=== PATIENT | female | born 1985 | race Caucasian/White ===

== ENCOUNTER 2023-03-07 19:23 | Emergency (ER) | payer BC ==
[2023-03-07 20:09] VITALS: TEMP 98.3
[2023-03-07 20:35] LABS: Basophils # (A) 0.1 k/uL (0-0.2); Basophils % (A) 1 %; Eosinophils # (A) 0.2 k/uL (0-0.7); Eosinophils % (A) 2 %; HCT 36.8 % (34.0-46.0); HGB 12.5 gm/dL (11.4-16.0); Lymphocytes # (A) 2.5 k/uL (1.0-4.8); Lymphocytes % (A) 23 %; MCH 31.2 pg (25.0-35.0); MCHC 33.9 g/dL (31.0-37.0); Mean Platelet Volume 7.5; Monocytes # (A) 0.5 k/uL (0-1.0); Monocytes % (A) 4 %; Neutrophils # (A) 7.3 k/uL (1.3-7.7); Neutrophils % (A) 68 %; Platelet Count 280 k/uL (150-450); WBC 10.7 k/uL (3.8-10.6)
[2023-03-07 20:47] LABS: ALT 19 U/L (4-34); AST 21 U/L (14-36); African American GFR (CKD) >90 (>60 ml/min/1.73 sqM); Albumin 3.8 g/dL (3.5-5.0); Alkaline Phosphatase 56 U/L (38-126); Anion Gap 9 mmol/L; Blood Urea Nitrogen 12 mg/dL (7-17); Calcium 9.4 mg/dL (8.4-10.2); Carbon Dioxide 21 mmol/L (22-30); Chloride 106 mmol/L (98-107); Glucose 97 mg/dL (74-99); Non-African American GFR(CKD) >90 (>60 ml/min/1.73 sqM); Potassium 4.2 mmol/L (3.5-5.1); Sodium 136 mmol/L (137-145); Total Bilirubin 0.4 mg/dL (0.2-1.3); Total Protein 7.3 g/dL (6.3-8.2)
[2023-03-07 20:48] LABS: Amorphous Sediment,Urine Occasional /hpf; Appearance,Urine Cloudy (Clear); Bacteria,Urine Many /hpf; Bilirubin,Urine Negative (Negative); Blood,Urine Negative (Negative); Calcium Oxalate Crystals,Urine Moderate /hpf; Color,Urine Yellow; Glucose,Urine (UA) Negative (Negative); Hyaline Casts,Urine 4 /lpf (0-2); Ketones,Urine Trace (Negative); Leukocyte Esterase,Urine Small (Negative); Mucus,Urine Moderate /hpf; Nitrite,Urine Negative (Negative); PH, Urine 5.5 (5.0-8.0); Protein,Urine 1+ (Negative); RBC,Urine 1 /hpf (0-5); Specific Gravity,Urine 1.037 (1.001-1.035); Squamous Epithelial Cell,Urine 9 /hpf (0-4); WBC,Urine 14 /hpf (0-5)
[2023-03-07] MEDS ORDERED: SODIUM CHLORIDE 0.9% 1,000 ML IV ONE (21:20)
--- NOTE | 2023-03-07 21:48 | ED ---
General Adult HPI - General Chief complaint: Vaginal Bleeding Stated complaint: 14 Wks preg. Pain, Discharge Time Seen by Provider: 03/07/23 20:02 Source: patient, RN notes reviewed Mode of arrival: ambulatory - History of Present Illness Initial comments: 37-year-old female with no significant past medical history presents the emergency department with a chief complaint of vaginal bleeding. Patient reports that she had a light pink tinge of vaginal bleeding after wiping on 02/2023. She reports that yesterday her discharge was canceled and light brown. She did call her CLIENT ARCHITECT twice report her symptoms which they advised her to watch her symptoms closely. Tonight she presents to the emergency department because she felt sudden onset right lower quadrant abdominal pain, sharp and lasted a few moments. It has since resolved. She is also complaining of persistent nausea throughout her . She reports she is approximately 14 weeks . This is her first . Denies any active pain, vaginal bleeding or discharge. Denies concerned for STDs at this time. - Related Data Previous Rx's Medication Instructions Recorded Njk-Acek-Dhwrg Acid 1 each PO DAILY #30 cap 03/07/23 [-U Capsule] Cephalexin [Keflex] 500 mg PO BID #14 cap 03/08/23 Allergies Allergy/AdvReac Type Severity Reaction Status Date / Time adhesive Allergy Rash/Hives Verified 03/07/23 20:00 latex Allergy Rash/Hives Verified 03/07/23 20:00 sumatriptan [From Imitrex] Allergy Rapid Verified 03/07/23 20:00 Heart Rate Review of Systems ROS Statement: Those systems with pertinent positive or pertinent negative responses have been documented in the HPI. ROS Other: All systems not noted in ROS Statement are negative. Past Medical History Additional Past Medical History / Comment(s): diverticulitis, mirgaines History of Any Multi-Drug Resistant Organisms: None Reported Past Surgical History: No Surgical Hx Reported Past Psychological History: No Psychological Hx Reported Smoking Status: Never smoker Past Alcohol Use History: None Reported Past Drug Use History: None Reported General Exam - General Exam Comments Initial Comments: General: Alert, in no acute distress Head: atraumatic normocephalic. Eyes PERRL, EOMI intact, mucous membranes moist Respiratory: Lungs clear to auscultation bilaterally Cardiovascular: Rate regular rate and rhythm Abdominal: Soft without guarding or rebound Extremities: Normal inspection with full range of motion and normal capillary refill Neuroogic: alert and oriented 3, CN II-XII intact, able to ambulate with steady gait Skin: warm dry and intact with normal color : external exam is without any rashes, lesions, erythema. Vaginal canal with thin, clear discharge, no active vaginal bleeding. Cervical os is visualized and is closed. There is no cervical motion tenderness for abnormal adnexal tenderness. Pelvic exam performed with safety glass installer, YOON Pedraza present. Course Vital Signs 03/07/23 03/07/23 19:55 23:16 Temperature 98.3 F Pulse Rate 99 88 Respiratory 17 18 Rate Blood Pressure 101/60 126/81 O2 Sat by Pulse 97 97 Oximetry - Reevaluation(s) Reevaluation #1: 03/07/23 22:12 Reevaluated. Resting comfortably. Patient aware awaiting ultrasound results. Reevaluation #2: 03/07/23 23:06 exam performed with ANA PAULA Pedraza present in the room for safety glass installer. Patient agreeable with plan for discharge home. Medical Decision Making - Medical Decision Making Was pt. sent in by a medical professional or institution (JESICA Alejandro, CLIENT DELIVERY SPECIALIST, urgent care, hospital, or jail...) When possible be specific @ -[No] Did you speak to anyone other than the patient for history (EMS, parent, family, police, friend...)? What history was obtained from this source @ -Mother Did you review nursing and triage notes (agree or disagree)? Why? @ -[I reviewed and agree with nursing and triage notes] Were old charts reviewed (outside hosp., previous admission, EMS record, old EKG, old radiological studies, urgent care reports/EKG's, jail records)? Report findings @ -[No old charts were reviewed] Differential Diagnosis (chest pain, altered mental status, abdominal pain women, abdominal pain men, vaginal bleeding, weakness, fever, dyspnea, syncope, h eadache, dizziness, GI bleed, back pain, seizure, CVA, palpatations, mental health, musculoskeletal)? @ -[not applicable] EKG interpreted by me (3pts min.). @ -[As above] X-rays interpreted by me (1pt min.). @ -[None done] CT interpreted by me (1pt min.). @ -[None done] U/S interpreted by me (1pt. min.). @ -Ultrasound reveals single live intrauterine that measures approximately 15 weeks and one day. Anterior placenta however no evidence of previa. What testing was considered but not performed or refused? (CT, X-rays, U/S, labs)? Why? @ -[None] What meds were considered but not given or refused? Why? @ -[None] Did you discuss the management of the patient with other professionals (professionals i.e. , PA, CLIENT DELIVERY SPECIALIST, lab, RT, psych nurse, social staff worker, registered safety engineer, teacher, chief program officer, case resolution specialist)? Give summary @ -[No] Was smoking cessation discussed for >3mins.? @ -[No] Was critical care preformed (if so, how long)? @ -[No] Were there social determinants of health that impacted care today? How? ( Homelessness, low income, unemployed, alcoholism, drug addiction, transportation, low edu. Level, literacy, decrease access to med. care, detention, rehab)? @ -[No] Was there de-escalation of care discussed even if they declined (Discuss DNR or withdrawal of care, Hospice)? DNR status @ -[No] What co-morbidities impacted this encounter? (DM, HTN, Smoking, COPD, CAD, Cancer, CVA, ARF, Chemo, Hep., AIDS, mental health diagnosis, sleep apnea, morbid obesity)? @ -[None] Was patient admitted / discharged? Hospital course, mention meds given and route, prescriptions, significant lab abnormalities, going to OR and other pertinent info. @ -Discharged. This is a 37-year-old female presents to the emergency department with a chief complaint of vaginal bleeding in . Patient has a history and physical exam performed. Vital signs are stable. Heart rate regular rate and rhythm, only lungs clear to auscultation bilaterally abdomen is soft and nontender. Patient laboratory studies which revealed hCG is 65,000. Ultrasound results above. Pelvic exam does not reveal any evidence of vaginal bleeding and states her office is closed. I discussed results in detail with the patient verbalized understanding all questions addressed. She is agreeable with plan for discharge home. Recommend close follow-up with PCP and CLIENT ARCHITECT in 1-2 days. Strict return parameters were discussed. Urine culture is pending. Discharged in stable condition. Discussed with Dr. Cordero, ED attending who agrees with plan of care Undiagnosed new problem with uncertain prognosis? @ -[No] Drug Therapy requiring intensive monitoring for toxicity (Heparin, Nitro, Insulin, Cardizem)? @ -[No] Were any procedures done? @ -[No] Diagnosis/symptom? @ Vaginal Bleeding Acute, or Chronic, or Acute on Chronic? @ -Acute Uncomplicated (without systemic symptoms) or Complicated (systemic symptoms)? @ -Uncomplicated Side effects of treatment? @ -[No] Exacerbation, Progression, or Severe Exacerbation? @ -[No] Poses a threat to life or bodily function? How? (Chest pain, USA, SC, pneumonia, PE, COPD, DKA, ARF, appy, cholecystitis, CVA, Diverticulitis, Homicidal, Suicidal, threat to staff... and all critical care pts) @ -Low likelihood - Lab Data Result diagrams: 03/07/23 20:10 03/07/23 20:10 Lab Results 03/07/23 03/07/23 03/07/23 Range/Units 20:10 20:10 20:10 WBC 10.7 H (3.8-10.6) k/uL RBC 4.00 (3.80-5.40) m/uL Hgb 12.5 (11.4-16.0) gm/dL Hct 36.8 (34.0-46.0) % MCV 92.0 (80.0-100.0) fL MCH 31.2 (25.0-35.0) pg MCHC 33.9 (31.0-37.0) g/dL RDW 13.0 (11.5-15.5) % Plt Count 280 (150-450) k/uL MPV 7.5 Neutrophils % 68 % Lymphocytes % 23 % Monocytes % 4 % Eosinophils % 2 % Basophils % 1 % Neutrophils # 7.3 (1.3-7.7) k/uL Lymphocytes # 2.5 (1.0-4.8) k/uL Monocytes # 0.5 (0-1.0) k/uL Eosinophils # 0.2 (0-0.7) k/uL Basophils # 0.1 (0-0.2) k/uL Sodium 136 L (137-145) mmol/L Potassium 4.2 (3.5-5.1) mmol/L Chloride 106 (98-107) mmol/L Carbon Dioxide 21 L (22-30) mmol/L Anion Gap 9 mmol/L BUN 12 (7-17) mg/dL Creatinine 0.64 (0.52-1.04) mg/dL Est GFR (CKD-EPI)AfAm >90 (>60 ml/min/1.73 sqM) Est GFR (CKD-EPI)NonAf >90 (>60 ml/min/1.73 sqM) Glucose 97 (74-99) mg/dL Calcium 9.4 (8.4-10.2) mg/dL Total Bilirubin 0.4 (0.2-1.3) mg/dL AST 21 (14-36) U/L ALT 19 (4-34) U/L Alkaline Phosphatase 56 (38-126) U/L Total Protein 7.3 (6.3-8.2) g/dL Albumin 3.8 (3.5-5.0) g/dL HCG, Quant 61870.7 mIU/mL Urine Color Yellow Urine Appearance Cloudy H (Clear) Urine pH 5.5 (5.0-8.0) Ur Specific [place] 1.037 H (1.001-1.035) Urine Protein 1+ H (Negative) Urine Glucose (UA) Negative (Negative) Urine Ketones Trace H (Negative) Urine Blood Negative (Negative) Urine Nitrite Negative (Negative) Urine Bilirubin Negative (Negative) Urine Urobilinogen 2.0 (<2.0) mg/dL Ur Leukocyte Esterase Small H (Negative) Urine RBC 1 (0-5) /hpf Urine WBC 14 H (0-5) /hpf Ur Squamous Epith Cells 9 H (0-4) /hpf Calcium Oxalate Crystal Moderate H (None) /hpf Amorphous Sediment Occasional H (None) /hpf Urine Bacteria Many H (None) /hpf Hyaline Casts 4 H (0-2) /lpf Urine Mucus Moderate H (None) /hpf Blood Type Blood Type Confirm Blood Type Recheck Bld Type Recheck Status Antibody Screen Spec Expiration Date 03/07/23 03/07/23 Range/Units 20:20 22:15 WBC (3.8-10.6) k/uL RBC (3.80-5.40) m/uL Hgb (11.4-16.0) gm/dL Hct (34.0-46.0) % MCV (80.0-100.0) fL MCH (25.0-35.0) pg MCHC (31.0-37.0) g/dL RDW (11.5-15.5) % Plt Count (150-450) k/uL MPV Neutrophils % % Lymphocytes % % Monocytes % % Eosinophils % % Basophils % % Neutrophils # (1.3-7.7) k/uL Lymphocytes # (1.0-4.8) k/uL Monocytes # (0-1.0) k/uL Eosinophils # (0-0.7) k/uL Basophils # (0-0.2) k/uL Sodium (137-145) mmol/L Potassium (3.5-5.1) mmol/L Chloride (98-107) mmol/L Carbon Dioxide (22-30) mmol/L Anion Gap mmol/L BUN (7-17) mg/dL Creatinine (0.52-1.04) mg/dL Est GFR (CKD-EPI)AfAm (>60 ml/min/1.73 sqM) Est GFR (CKD-EPI)NonAf (>60 ml/min/1.73 sqM) Glucose (74-99) mg/dL Calcium (8.4-10.2) mg/dL Total Bilirubin (0.2-1.3) mg/dL AST (14-36) U/L ALT (4-34) U/L Alkaline Phosphatase (38-126) U/L Total Protein (6.3-8.2) g/dL Albumin (3.5-5.0) g/dL HCG, Quant mIU/mL Urine Color Urine Appearance (Clear) Urine pH (5.0-8.0) Ur Specific [place] (1.001-1.035) Urine Protein (Negative) Urine Glucose (UA) (Negative) Urine Ketones (Negative) Urine Blood (Negative) Urine Nitrite (Negative) Urine Bilirubin (Negative) Urine Urobilinogen (<2.0) mg/dL Ur Leukocyte Esterase (Negative) Urine RBC (0-5) /hpf Urine WBC (0-5) /hpf Ur Squamous Epith Cells (0-4) /hpf Calcium Oxalate Crystal (None) /hpf Amorphous Sediment (None) /hpf Urine Bacteria (None) /hpf Hyaline Casts (0-2) /lpf Urine Mucus (None) /hpf Blood Type A Positive Blood Type Confirm A Positive Blood Type Recheck No Previous Record Bld Type Recheck Status CABO Indicated Antibody Screen NEGATIVE Spec Expiration Date 03/10/20232319 Disposition Clinical Impression: Vaginal bleeding Disposition: HOME SELF-CARE Condition: Fair Additional Instructions: Follow-up with her primary CLIENT ARCHITECT in 1-2 days Please to the nearest emergency department if worsening vaginal bleeding, heavy clots or dizziness or lightheadedness Prescriptions: Cephalexin [Keflex] 500 mg PO BID #14 cap Bhl-Hmyr-Pufzd Acid [-U Capsule] 1 each PO DAILY #30 cap Is patient prescribed a controlled substance at d/c from ED?: No Referrals: Jorge Galvan MD [Primary Care Provider] - 1-2 days Time of Disposition: 23:08
--- NOTE | 2023-03-07 22:29 | US ---
EXAMINATION TYPE: US OB >= 14 wk fetus DATE OF EXAM: 03/07/2023 COMPARISON: None CLINICAL INDICATION: Female, 37 years old with history of vaginal bleeding in ; Brown discha rge with cramping, , 300lbs TECHNIQUE: Transabdominal ultrasound of the pelvis was performed. GESTATIONAL AGE / DATING Physician Established: (14 weeks/2 days) EDC: 09/03/2023 Dates by LMP: LMP unknown Dates by First Scan: No previous this is first scan Dates by Current Scan: (15 weeks/1 days) EDC: 08/28/2023 Beta HCG (if available): pending SURVEY IUP: Single PLACENTA: Anterior PREVIA: No Previa CHERELLE: 9.5 cm Normal CERVICAL LENGTH (transabdominal: norm > 3.0cm): 3.0 cm BIOMETRY PRESENTATION: Vertex LIE: Longitudinal BPD: 2.7 cm 14 weeks / 6 days HC: 10.3 cm 14 weeks / 6 days AC: 8.9 cm 15 weeks / 2 days FL: 1.7 cm 15 weeks / 1 days ESTIMATED WEIGHT IN GRAMS: 114 grams ESTIMATED WEIGHT IN LBS/OZ: 0 lbs. 4 oz. WEIGHT PERCENTAGE BASED ON ESTABLISHED DATES: 88% HC/AC: 1.1 Normal FL/AC: 19 Normal HEART RATE: 149 bpm RHYTHM: Normal IMPRESSION: 1. Single, live intrauterine measuring 15 weeks 1 day. 2. Anterior placenta. No evidence of previa. Normal CHERELLE. Normal cervical length.
[2023-03-07 23:38] VITALS: BP 126/81; PULSE 88; RESP 18
== END 2023-03-07 23:18 | disposition home or self-care (01) ==
LOC: EC 19:23
DX: O46.92 Antepartum hemorrhage, unspecified, second trimester (principal); Z91.040 Latex allergy status; Z88.9 Allergy status to unspecified drugs, medicaments and biological substances; Z91.048 Other nonmedicinal substance allergy status; Z3A.15 15 weeks gestation of pregnancy
CPT/HCPCS: 36415; 76805; 80053; 81001; 84702; 85025; 86850; 86900; 86901; 87086; 96360; 99284